=== PATIENT | female | born 2000 | race Caucasian/White ===

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

== ENCOUNTER 2020-01-12 19:23 | Emergency (ER) | payer MEDICAID ==
[~2020-01-12] VITALS: Ht 160 cm; Wt 81.8 kg
[2020-01-12 20:24] VITALS: BP 139/80; Ht 160 cm; Wt 81.8 kg
[2020-01-12 20:55] LABS: KETONE NEGATIVE (NEGATIVE); NITRITE NEGATIVE (NEGATIVE)
[2020-01-12 20:56] LABS: BILIRUBIN NEGATIVE (NEGATIVE); UROBILINOGEN NORMAL mg/dL (< 2)
[2020-01-12 21:09] LABS: HCG URINE NEGATIVE (NEGATIVE)
== END 2020-01-12 21:01 | disposition left against medical advice (07) ==
LOC: D.ER 19:23
PROVIDERS: Emergency Medicine
DX: R42 Dizziness and giddiness (principal)